=== PATIENT | female | born 1995 | race Caucasian/White ===

== ENCOUNTER 2016-10-28 10:21 | Emergency (ER) | payer OTHER ==
[~2016-10-28] VITALS: Ht 172.7 cm; Wt 65.0 kg
[2016-10-28 13:07] LABS: HEMATOCRIT 42.3 % (36.0-46.0); MCHC 33.6 G/DL (30.0-36.0); MCV 86.3 FL (83-99); MEAN PLAT.VOLUME 10.1 uM^3 (9.5-12.4); PLATELET COUNT 211 K/uL (156-360); RBC DIS.WIDTH-SD 40.2 % (39-53); WHITE BLOOD COUNT 10.9 K/uL (4.1-10.2)
[2016-10-28 13:15] LABS: CHLORIDE 105 mEq/L (99-109); POTASSIUM 3.8 mEq/L (3.7-5.4); SODIUM 140 mEq/L (136-147)
[2016-10-28 13:17] LABS: GLUCOSE 85 mg/dL (70-99)
[2016-10-28 13:19] LABS: ANION GAP 11 MEQ/L (2-14); TOTAL BILIRUBIN 0.9 mg/dL (0.0-1.0)
[2016-10-28 13:21] LABS: ALKALINE PHOSPHATASE 82 IU/L (3-129); GFR ESTIMATE (CALCULATED) > 59 mL/min/
[2016-10-28 13:22] LABS: UREA NITROGEN (BUN) 6 mg/dL (9-23)
[2016-10-28 13:38] LABS: INTERNAL CONTROL VALID? YES; MONOSPOT (MONONUCLEOSIS SEROL) POSITIVE
[2016-10-28 15:18] VITALS: BP 115/80
== END 2016-10-28 15:18 | disposition home or self-care (01) ==
LOC: EME 10:21
PROVIDERS: Nurse Practitioner Family
DX: B27.90 Infectious mononucleosis, unspecified without complication (principal); J35.1 Hypertrophy of tonsils; R74.8 Abnormal levels of other serum enzymes
CPT/HCPCS: 70491; 80053; 85027; 86308; 87040; 87651 90; 99281; 99284; J1100; J7030